=== PATIENT | male | born 1960 | race Caucasian/White ===

== ENCOUNTER → 2024-03-30 07:17 | Day surgery (SDC) | payer OTHER, SELFPAY ==
[2024-03-30 07:51] VITALS: BMI 28.6
--- NOTE | 2024-03-30 09:23 | ITS.CL.CARDI ---
Addendum entered and electronically signed by Chuckie Goodman DO 03/30/24 13:17:
.
The patient underwent cardioversion following successful BLANE.
Original Note:
Diesel Service Technician - Cardioversion
Cardioversion
Procedure Report:
Date of Procedure: March 30 2024
Procedure: Cardioversion
Indication: Symptomatic atrial fibrillation
Performing Physician: Chuckie Goodman DO [facility]
Technique: The patient was brought to the holding area. Signed informed consent was obtained. A time out was called and performed. The patient was anesthetized by the anesthesia service. Anticoagulation status was reviewed and appropriate. R2 pads
were placed anteriorly and posteriorly. A 200 J synchronized biphasic shock restored normal sinus rhythm without significant bradycardia. There were no complications.
Conclusion: Uncomplicated cardioversion from atrial fibrillation to sinus rhythm.
Recommendation: Routine post cardioversion care. Continue terminal system operator anticoagulation.
== END ==
LOC: CATH 07:17
PROVIDERS: ATTENDING PHYSICIAN Nuclear Medicine Nuclear Cardiology; FAMILY PHYSICIAN Family Medicine; OTHER PHYSICIAN Internal Medicine Cardiovascular Disease
DX: I48.19 Other persistent atrial fibrillation (principal); I08.1 Rheumatic disorders of both mitral and tricuspid valves; I48.92 Unspecified atrial flutter; R07.89 Other chest pain; I25.10 Atherosclerotic heart disease of native coronary artery without angina pectoris; I10 Essential (primary) hypertension; Z87.891 Personal history of nicotine dependence; Z79.01 Long term (current) use of anticoagulants
CPT/HCPCS: 93312; 93320; 93325; 92960; 93005

== ENCOUNTER 2024-03-31 13:34 | Emergency (ER) | payer OTHER, SELFPAY ==
[2024-03-31 13:39] VITALS: BP 132/82
[2024-03-31 14:00] LABS: % Basophils 0.5 % (0-2); % Immature Granulocytes 0.4 % (0-0.5); % Lymphocytes 22.3 % (20.5-51.1); % Neutrophils 60.8 % (42.2-75.2); Absolute Eosinophils 0.3 10^3/uL (0-0.7); Absolute Lymphocytes 1.9 10^3/uL (1.2-3.4); Absolute Monocytes 1.1 10^3/uL (0.1-0.6); Absolute Neutrophils 5.1 10^3/uL (1.4-6.5); Hematocrit 38.2 % (39.0-52.0); Hemoglobin 14.2 g/dL (13.0-18.0); Mean Corp Hgb Conc. 37.2 g/dL (33.0-37.0); Mean Corpuscular Hgb 34.3 pg (27.0-31.0); Mean Corpuscular Volume 92.3 fL (80.0-94.0); Mean Platelet Volume 10.7 fL (7.4-10.4); Nucleated Red Blood Cells % 0 % (-); Platelet Count 226 10^3/uL (130-400); Red Blood Cell Count 4.14 10^6/uL (4.70-6.10); White Blood Cell Count 8.4 10^3/uL (4.8-10.8)
[2024-03-31 14:23] LABS: ALT (SGPT) 50 U/L (0-50); AST (SGOT) 54 U/L (17-59); Albumin 4.2 g/dl (3.5-5.0); Alkaline Phosphatase 66 U/L (38-126); Blood Urea Nitrogen 11 mg/dl (9-20); Carbon Dioxide 28 mmol/L (22-30); Chloride 100 mmol/L (98-107); Glucose 113 mg/dl (70-99); Potassium 3.2 mmol/L (3.5-5.1); Sodium 135 mmol/L (135-145); Total Bilirubin 1.1 mg/dl (0.2-1.3); Total Protein 6.5 g/dl (6.3-8.2); eGFR > 60.00
[2024-03-31 14:33] LABS: Troponin I < 0.012 ng/ml
[2024-03-31 14:40] VITALS: BP 130/115
[2024-03-31] MEDS: KCL 40 MEQ PO (14:49)
--- NOTE | 2024-03-31 14:49 | ED.GENMED ---
History of Present Illness
General
Chief Complaint: Heart Rate Problem
Source: patient and records
Time Seen by Provider: 03/31/24 14:35
History of Present Illness
History of Present Illness:
63yoM with a history of atrial fibrillation and hypertension presenting with his for evaluation of palpitations. Patient underwent BLANE/cardioversion yesterday morning with Dr. Goodman. He converted to NSR and was discharged. Patient states he
felt himself go back into afib around dinner time last night. He has been monitoring his heart rate on his home monitor and heart rates have been controlled. He called the cardiology office today and was advised to go to the ED for evaluation.
Patient is minimally symptomatic currently. He has some mild dyspnea and chest pressure which he has been having for several months. No dizziness or syncope.
He was seen by his PCP about 1 month ago due to his chest discomfort and dyspnea. He was found to be in afib and was prescribed Xarelto and referred to cardiology. He was seen by cardiology in the outpatient setting 4 days ago and the
BLANE/cardioversion was scheduled for yesterday. He has a history of a prior cardioversion 10 years ago. He states he converted back into afib about 3 days after the cardioversion and ultimately underwent an ablation.
Past History
Past History
ED Past Medical History: Arrthythmia, GERD and Psychiatric
ED Past Surgical History: Cardiac (ablation)
Social History
Tobacco: Former smoker
Alcohol: Occasional
Drug: None
Personal:
Living: with family
Phy Exam
General Physical Exam
General Presentation: well appearing and no apparent distress
General age: appears stated age
General Skin: warm and dry
General Habitus: normal
General Mental: alert
General Hydration: appears well hydrated
Cardiovascular Exam
Cardiovascular Exam: irregularly irregular
Pulmonary Exam
Pulmonary Exam: lungs clear, no respiratory distress, no crackles and no wheezing
Musculoskeletal Exam
Musculoskeletal Exam: no edema
Skin Exam
Skin Exam: normal color and warm/dry
Course
Orders/Labs/Results
Orders:
Orders
03/31/24 13:42
EKG [Electrocardiogram (*1)] Urgent
Reason for Study: Tachycardia
EKG- Treatment ONCE
03/31/24 13:49
Complete Blood Count/With Diff Urgent
Comprehensive Metabolic Panel Urgent
Magnesium Urgent
Comment: MAG ADDED ON BY FLOOR 2:30PM 03-31-24
Troponin I Urgent
03/31/24 14:36
Add On- LAB Urgent
Tests Added?: magnesium
Potassium Chloride [KCl] 40 meq PO NOW STA
03/31/24 15:02
Magnesium Sulfate 2 Gram/50 ml [Magnesium Sulfate] 2 gram in 50 ml IV NOW
03/31/24 15:30
Flecainide [Tambocor] 50 mg PO NOW STA
Abnormal Lab Results
03/31/24
13:49
RBC 4.14 L 10^6/uL
(4.70-6.10)
Hct 38.2 L %
(39.0-52.0)
MCH 34.3 H pg
(27.0-31.0)
MCHC 37.2 H g/dL
(33.0-37.0)
MPV 10.7 H fL
(7.4-10.4)
Absolute Monos (auto) 1.1 H 10^3/uL
(0.1-0.6)
Monocytes % 13.0 H %
(1.7-9.3)
Potassium 3.2 L mmol/L
(3.5-5.1)
Creatinine 0.6 L mg/dL
(0.7-1.3)
Glucose 113 H mg/dl
(70-99)
Magnesium 1.2 L mg/dl
(1.6-2.3)
03/31/24 13:49
03/31/24 13:49
Vital Signs
Initial and Last Documented VS:
Initial Vital Signs
Temp Pulse Resp BP Pulse Ox
98.4 F 77 16 132/82 98
03/31/24 13:39 03/31/24 13:39 03/31/24 13:39 03/31/24 13:39 03/31/24 13:39
Last Documented Vital Signs
Temp Pulse Resp BP Pulse Ox
98.4 F 72 14 106/93 93
03/31/24 13:39 03/31/24 16:15 03/31/24 16:15 03/31/24 16:01 03/31/24 16:15
MDM/Problems Addressed
Differential Diagnosis Includes:
63yoM here with atrial fibrillation. Underwent BLANE/cardioversion yesterday and now back in afib. He is minimally symptomatic currently. HR 77 on arrival and BP stable. He is well appearing in no distress. Differential diagnosis includes but is not
limited to: atrial fibrillation, electrolyte abnormality, ACS
Initial ED plan: Check cardiac labs, magnesium, and EKG. Will discuss with cardiology.
*EKG
Interpreted by ED Provider?: Yes
EKG Intrepretation Date: 03/31/24
EKG Intrepretation Time: 15:01
Heart Rate: 73
Rate: normal
Rhythm: a-fib
Burt: normal axis
Interval: normal interval
QRS Pattern: normal QRS
Ischemia: non-specific ST changes
*Critical Care Note
Total Time (30-74mins, 75-104mins- exclusive of procedures): Not Applicable
Update Note
Update Note:
Labs reveal a potassium of 3.2 and magnesium of 1.2 which were replaced. EKG shows rate controlled afib without ischemic changes and troponin is normal. Case was discussed with Dr. Donovan, accordion tuner gun tester. Patient seen by cardiology AP. Plan
is to initiate patient on flecainide 50mg BID and close outpatient f/u next week for repeat EKG. No need for admission per cardiology. Recommendations were discussed with patient and script was sent to pharmacy by the cardiology team. ED return
precautions discussed. He was discharged in stable condition.
ED Attending Note
-
Portions of this chart may have been created with voice recognition software.� Occasional wrong word or��sound alike� substitutions may have occurred due to the inherent limitations of voice recognition software.
Discharge Plan
Departure
Patient Disposition: Home (Routine Discharge)
Date of Disposition: 03/31/24
Time of Disposition: 16:02
Patient with high blood pressure during this ER visit?: No
Discharge Problem:
Atrial fibrillation
Instructions: Atrial Fibrillation (DC), Flecainide
Prescriptions:
New
flecainide 50 mg tablet
50 mg PO Q12H Qty: 60 3RF
No Action
amlodipine 5 MG tablet
5 mg PO DAILY
propranolol 80 MG capsule,extended release 24 hr
160 mg PO DAILY
omeprazole 40 MG capsule,delayed release(DR/EC)
40 mg PO DAILY
hydrochlorothiazide 25 MG tablet
25 mg PO DAILY
bupropion HCl 150 MG tablet extended release 24 hr
150 mg PO QPM
Patient Comments:
with 300mg = 450mg
escitalopram oxalate 10 mg Tablet
10 mg PO QPM
Xarelto 20 mg Tablet
20 mg PO QPM
Referrals:
Ronni Barakat DO [Family Provider] -
Activity Restrictions/Additional Instructions:
Take flecainide as prescribed by the gun tester.
Please follow-up with your gun tester on Wednesday. Return to the ER with any worsening symptoms, chest pain, or passing out.
Interventions
Interventions:
*Risk Screen - Suicide Last Done: 03/31/24 13:39
*General Assessment Last Done: 03/31/24 13:39
*Neglect/Abuse Screening Last Done: 03/31/24 13:39
ED- Fall Risk Assessment Last Done: 03/31/24 16:34
*ED COVID-19 Vaccine History Last Done: 03/31/24 16:34
*Nursing Disposition Last Done: 03/31/24 16:34
ED- Cardiac Assessment Last Done: 03/31/24 14:43
ED- Pulmonary Assessment Last Done: 03/31/24 14:44
Discharge Date and Time
Discharge Date/Time: 03/31/24 16:35
Print Language: FRENCH
[2024-03-31 15:00] VITALS: BP 122/84
[2024-03-31 15:00] LABS: Magnesium 1.2 mg/dl (1.6-2.3)
[2024-03-31] MEDS: MAGNESIUM SULFATE 50 IV (15:09)
[2024-03-31] MEDS: TAMBOCOR 50 MG PO (15:52)
[2024-03-31 16:01] VITALS: BP 106/93
== END 2024-03-31 16:35 | disposition home or self-care (01) ==
LOC: EMR 13:34
PROVIDERS: Emergency Medicine; EMERGENCY PHYSICIAN Emergency Medicine; FAMILY PHYSICIAN Family Medicine
DX: I48.91 Unspecified atrial fibrillation (principal); I10 Essential (primary) hypertension; Z87.891 Personal history of nicotine dependence
CPT/HCPCS: 99284; 96360; 96361; 80053; 83735; 84484; 85025; 93005

== ENCOUNTER → 2024-04-10 12:17 | Outpatient (REF) | payer OTHER, SELFPAY | LOC: DHCBC/DCA 12:17 | PROVIDERS: ATTENDING PHYSICIAN Internal Medicine Cardiovascular Disease; FAMILY PHYSICIAN Family Medicine | DX: R07.89 Other chest pain (principal) | CPT/HCPCS: 78452; 93017; A9500; J2785 ==

== ENCOUNTER 2024-05-05 06:36 | Day surgery (SDC) | payer OTHER, SELFPAY ==
[2024-04-28 10:09] VITALS: BMI 30.1
[2024-04-28 10:37] LABS: % Basophils 0.6 % (0-2); % Eosinophils 2.6 % (0-6); % Immature Granulocytes 0.4 % (0-0.5); % Monocytes 10.1 % (1.7-9.3); % Neutrophils 65.3 % (42.2-75.2); Absolute Eosinophils 0.1 10^3/uL (0-0.7); Absolute Lymphocytes 1.1 10^3/uL (1.2-3.4); Absolute Monocytes 0.6 10^3/uL (0.1-0.6); Absolute Neutrophils 3.6 10^3/uL (1.4-6.5); Hematocrit 40.3 % (39.0-52.0); Hemoglobin 14.8 g/dL (13.0-18.0); Mean Corp Hgb Conc. 36.7 g/dL (33.0-37.0); Mean Corpuscular Hgb 34.3 pg (27.0-31.0); Mean Corpuscular Volume 93.3 fL (80.0-94.0); Mean Platelet Volume 10.6 fL (7.4-10.4); Nucleated Red Blood Cells % 0 % (-); Platelet Count 202 10^3/uL (130-400); Red Blood Cell Count 4.32 10^6/uL (4.70-6.10); Red Cell Dist. Width 12.5 % (11.5-14.5); White Blood Cell Count 5.4 10^3/uL (4.8-10.8)
[2024-04-28 10:48] LABS: INR 1.43; PT 17.3 Sec (11.4-14.6)
[2024-04-28 11:28] LABS: ALT (SGPT) 56 U/L (0-50); AST (SGOT) 39 U/L (17-59); Albumin 4.3 g/dl (3.5-5.0); Alkaline Phosphatase 57 U/L (38-126); Blood Urea Nitrogen 12 mg/dl (9-20); Calcium 9.6 mg/dl (8.4-10.2); Carbon Dioxide 27 mmol/L (22-30); Chloride 101 mmol/L (98-107); Estimated Creatinine Clearance 118 ml/min; Glucose 90 mg/dl (70-99); Potassium 4.2 mmol/L (3.5-5.1); Sodium 136 mmol/L (135-145); Total Bilirubin 0.8 mg/dl (0.2-1.3); Total Protein 6.7 g/dl (6.3-8.2); eGFR > 60.00
[2024-05-05] VITALS (65 sets, daily range): BP systolic 118–152; BP diastolic 71–92
--- NOTE | 2024-05-05 09:05 | ITS.CL.CATH ---
Physical Therapy Director - Catheterization
Cardiac Catheterization
Procedure Report:
LEFT HEART CATHETERIZATION
Date of Procedure: May 05, 2024
Referring: Dr. Edison Pitts
PROCEDURES:
1. Left heart catheterization with coronary and single-plane left ventriculography
INDICATION: Chest pain with recent stress study notable for reversible defect in the basal anteroseptal, basal to mid inferior and basal to mid inferoseptal. LVEF is normal.
ACCESS: Attempted access in the right radial artery was unsuccessful. The radial artery was easily accessible with a beveled needle, however, the soft wire could only be advanced approximately 1 to 2 inches into the artery and no further. I
attempted to access the radial higher in the wrist and again excellent pulsatile flow with inability to pass soft tip guide wire distally. Arterial access was then switched to the right common femoral artery. Ultrsound guidance was utilized with
placement of a 5 Fr. arterial sheath
HEMODYNAMICS : (mmHg)
AO (s/d) : 139/78
LV (s/d) : 133/4
LVEDP : 21
CORONARY FINDINGS
DOMINANCE: Left
LEFT MAIN: Normal
LEFT ANTERIOR DESCENDING: The LAD arises normally from the left main and runs in the anterior interventricular groove with only minor irregularities. The LAD wraps completely around the apex supplying a portion of the inferior wall
RAMUS: 50% ostial stenosis. Small-medium caliber vessel supplying a small vascular territory
CIRCUMFLEX: The circumflex is a large-caliber dominant vessel giving rise to a moderate caliber OM1 and terminating in a moderate-sized posterolateral branch and PDA. Only minor irregularities are present
RIGHT CORONARY ARTERY: Small nondominant
VENTRICULOGRAPHY: Digital single-plane left ventricular ejection fraction is estimated at 60%. No regional wall motion abnormality
RADIATION SUMMARY: Fluoro Time (min): 2.5, Dose (mGy): 245, DAP (Gy.cm2) : 19.8
Closure Device: TR band
CONCLUSIONS
1. Nonobstructive coronary disease and stable coronary anatomy
2. Preserved systolic function
RECOMMENDATIONS
1. Continued medical therapy and risk modification
Copy to: Dr. Edison Pitts
[2024-05-05] MEDS: NSS 1000 IV (12:05)
== END 2024-05-05 12:13 | disposition home or self-care (01) ==
LOC: CATH 06:36
PROVIDERS: ATTENDING PHYSICIAN Internal Medicine Interventional Cardiology; FAMILY PHYSICIAN Family Medicine; OTHER PHYSICIAN Internal Medicine Cardiovascular Disease
DX: I25.10 Atherosclerotic heart disease of native coronary artery without angina pectoris (principal); I48.91 Unspecified atrial fibrillation; I10 Essential (primary) hypertension; Z87.891 Personal history of nicotine dependence; Z79.01 Long term (current) use of anticoagulants
CPT/HCPCS: 36415; 80053; 85025; 85610; 93005; 93458; C1894; Q9967

== ENCOUNTER → 2024-05-11 06:24 | Outpatient (REF) | payer OTHER, SELFPAY | LOC: HWRAD 06:24 | PROVIDERS: ATTENDING PHYSICIAN Family Medicine | DX: R06.02 Shortness of breath (principal) | CPT/HCPCS: 71046 ==

== ENCOUNTER 2024-07-12 07:54 | Day surgery (SDC) | payer OTHER, SELFPAY ==
[2024-06-26 08:51] VITALS: BMI 30.5
[2024-06-26 09:27] LABS: % Basophils 0.7 % (0-2); % Eosinophils 2.4 % (0-6); % Immature Granulocytes 0.7 % (0-0.5); % Lymphocytes 17.6 % (20.5-51.1); % Monocytes 10.6 % (1.7-9.3); Absolute Eosinophils 0.2 10^3/uL (0-0.7); Absolute Lymphocytes 1.1 10^3/uL (1.2-3.4); Absolute Monocytes 0.7 10^3/uL (0.1-0.6); Absolute Neutrophils 4.2 10^3/uL (1.4-6.5); Hemoglobin 14.8 g/dL (13.0-18.0); Mean Corp Hgb Conc. 36.1 g/dL (33.0-37.0); Mean Corpuscular Hgb 34.7 pg (27.0-31.0); Mean Platelet Volume 10.4 fL (7.4-10.4); Nucleated Red Blood Cells % 0 % (-); Platelet Count 192 10^3/uL (130-400); Red Blood Cell Count 4.27 10^6/uL (4.70-6.10); Red Cell Dist. Width 13.1 % (11.5-14.5); White Blood Cell Count 6.1 10^3/uL (4.8-10.8)
[2024-06-26 09:34] LABS: INR 1.32; PT 16.2 Sec (11.4-14.6)
[2024-06-26 09:37] LABS: ALT (SGPT) 54 U/L (0-50); AST (SGOT) 36 U/L (17-59); Albumin 4.5 g/dl (3.5-5.0); Alkaline Phosphatase 48 U/L (38-126); Blood Urea Nitrogen 15 mg/dl (9-20); Calcium 9.6 mg/dl (8.4-10.2); Carbon Dioxide 29 mmol/L (22-30); Chloride 101 mmol/L (98-107); Estimated Creatinine Clearance > 125 ml/min; Glucose 95 mg/dl (70-99); Magnesium 1.6 mg/dl (1.6-2.3); Potassium 4.3 mmol/L (3.5-5.1); Sodium 139 mmol/L (135-145); eGFR > 60.00
[2024-07-12] VITALS (10 sets, daily range): BP systolic 122–154; BP diastolic 76–94; BMI 29.3
--- NOTE | 2024-07-12 10:08 | ITS.CL.ABL ---
Licensed Physical Therapist Assistant - Ablation
Ablation
Procedure Report:
Procedure Date: 07/12/2024
Patient History:
Patient is a pleasant 63-year-old male with a past medical history significant for history of tobacco use, history of alcohol use, nonobstructive coronary artery disease, paroxysmal atrial flutter status post CTI RFA 2013, and symptomatic paroxysmal
atrial fibrillation.
See H&P for complete details.
Indication:
Symptomatic paroxysmal atrial fibrillation
Arrhythmia Specific History:
Prior Medical Therapies for Rate and Rhythm Control:
X Beta-polina
[ ] Calcium channel-polina
[ ] Amiodarone
[ ] Dronederone
[ ] Sotalol
[ ] Flecainide
[ ] Dofetilide
[ ] Options limited by bradycardia
[ ] Options limited by comorbid renal disease
Prior Procedural Therapies for AF/AFL:
X Cardioversion
[ ] Pulmonary Vein Isolation
[ ] Posterior Wall Isolation
X Additional lines (Specify) - CTI RFA 2013 (Dylon Qureshi )
[ ] Surgical Caldwell-MAZE or PVI (Specify)
Procedure Performed:
X AF ablation procedure (44515) -- includes LA/CS pacing, trans-septal, 3D mapping, + ICE
[ ] +IV drug (16602)
[ ] +Other Arrhythmia (55642)
[ ] +Other AF Line/ablation (89002)
Risks and expected recovery has been explained in detail. Alternative options have been explored, and in a shared-decision making fashion we have decided that this was the most appropriate procedure.
Method
NPO status confirmed. Grounding pad applied. Defibrillator pads applied. Continuous surface ECG, pulse oximetry, and blood pressure were monitored. Procedure was performed under general anesthesia, with anesthesia services.
Both groins were clipped, prepped with Chloraprep, and draped in sterile fashion. Time out was called. Local anesthesia administered with bupivacaine. The right and left femoral veins were accessed for catheter placement, using ultrasound guidance,
micro-puncture needle/wire, and modified seldinger technique. 3 sheaths were placed. The following catheters were used:
[ ] Tacticath SE (D/F Curve) ablation catheter
X Viewflex 9Fr ICE catheter
X Inquiry decapolar 6Fr diagnostic catheter
[ ] CRD Hex 6Fr
[ ] Arctic Front Advance Cryoballoon ([ ]28mm[ ]23mm)
[ ] Achieve Advance mapping catheter ([ ]15mm[ ]20mm)
X FlexCath Contour 10 Fr with PulseSelect PFA Catheter
X Advisor HD Grid Mapping Catheter, SE
[ ] Acuson AcuNav 8 Fr ICE catheter
[ ]Other: [ ]
Intracardiac ultrasound (ICE) was carefully advanced into the right atrium to guide sheath placement over a J-wire, catheter placement, guide trans-septal puncture, identify potential complications, identify anatomic structures and ensure proper
contact between ablation catheter and tissue.
Heparin was given prior to trans-septal puncture. Heparin was given to achieve and maintain a target ACT of 300-400 seconds throughout the procedure.
Trans-septal access was performed under ICE guidance. The trans-septal puncture was performed with a SafeSept wire through a Brockenbrough needle assembly through the steerable sheath. The wire was visualized as it entered the LSPV and system
advanced under ICE guidance and fluoroscopy into the LA. The Brockenbrough needle assembly, SafeSept wire and sheath dilator were removed under negative pressure. LA pressure was measured and recorded.
ICE and 3D mapping was performed to identify relevant cardiac structures. A careful 3D map was created to assess for regions of low-voltage and abnormal electrogram signals using HD grid mapping catheter and PulseSelect catheter. Additional mapping
was performed as outlined below.
Prior to ablation, glycopyrrolate was provided. PulseSelect catheter was advanced over J-wire to the ostium of each vein. Pulmonary vein isolation was performed with ostial and antral lesions in a circumferential manner. Contact was visualized via
EAM, ICE, fluoroscopy, and EGM signals. Following completion of ablation lesions, a post-ablation voltage/activation map was performed in sinus rhythm. Entrance and exit block were confirmed for each vein. Following completion of pulmonary
isolation, HD grid was retracted into the steerable sheath under negative pressure. Steerable sheath was removed from the left atrium into the right atrium. HD grid catheter was advanced under fluoroscopy and intracardiac ultrasound guidance. HD
grid was then used for electroanatomic mapping under CS proximal pacing, evidence of persistent line of block at the CTI was noted. Transisthmus time was noted to be greater than 150 ms. Following electrophysiology study, no inducible arrhythmias
were noted.
Catheter and sheath were removed from the left atrium and post-ablation intracardiac echo evaluation was consistent with pre-ablation with no changes and no pericardial effusion and there is no left atrial thrombus or left ventricle thrombus seen.
Electrophysiology study was performed. Hemostasis was obtained with Vascade for each sheath and with manual pressure. Protamine was used for reversal.
Estimated Blood Loss
5 mL
Complications
None
Fluoroscopy: 3.7 minutes; 12.02 mGy; DAP 1.65
Baseline Intervals:
Rhythm: SR
GA: 159 ms
QRS: 106 ms
QT: 398 ms
QTc: 476 ms
A-A: 700 ms
R-R: 700 ms
Post-Procedure Intervals:
GA: 148 ms
QRS: 101 ms
QT: 425 ms
QTc: 417 ms
A-A: 1040 ms
R-R: 1040 ms
AVWB: 380 ms
AVERP: 600/310 ms
AERP: 600/210 ms
Recommendations
- Bedrest with straight-leg precautions as ordered
- Anticipate same day discharge if patient meeting clinical metrics
- Resume home medications as indicated
- Ok to resume anticoagulation tonight if patient and groin sites stable
- PPI daily for 30 days
- Plan for follow-up in office as scheduled
Edison Pitts, DO
Clinical Cardiac Steam Hoist Operator
cc: Ronni Barakat DO
[2024-07-12 11:44] LABS: ACT-LR - POC 261 Seconds (116-155)
[2024-07-12 11:58] LABS: ACT-LR - POC 282 Seconds (116-155)
[2024-07-12 12:16] LABS: ACT-LR - POC 361 Seconds (116-155)
[2024-07-12 12:31] LABS: ACT-LR - POC 326 Seconds (116-155)
[2024-07-12 12:53] LABS: ACT-LR - POC 384 Seconds (116-155)
[2024-07-12 13:01] LABS: ACT-LR - POC 157 Seconds (116-155)
[2024-07-12] MEDS: ANESTHETIC LOZENGE 1 LOZENGE PO (14:00)
--- NOTE | 2024-07-12 16:17 | W.PN.UPDATE ---
Update Note
Progress Note Update
Pt seen post PFA. Right groin with vascade closure, no ht/bleeding, oob ambulating, urinating without difficulty. Post EKG NSR 60s, no acute changes. Resume xarelto tonight, continue propranolol for now. Followup at [facility] as scheduled. Home today if
groin site/tele remain stable.
== END 2024-07-12 16:05 | disposition home or self-care (01) ==
LOC: CATH 07:54
PROVIDERS: ATTENDING PHYSICIAN Internal Medicine Cardiovascular Disease; FAMILY PHYSICIAN Family Medicine
DX: I48.19 Other persistent atrial fibrillation (principal); I48.92 Unspecified atrial flutter; I25.10 Atherosclerotic heart disease of native coronary artery without angina pectoris; I10 Essential (primary) hypertension; Z87.891 Personal history of nicotine dependence; R91.1 Solitary pulmonary nodule; G47.33 Obstructive sleep apnea (adult) (pediatric); F32.A Depression, unspecified; F41.9 Anxiety disorder, unspecified; K58.9 Irritable bowel syndrome, unspecified; Z79.899 Other long term (current) drug therapy; Z79.01 Long term (current) use of anticoagulants; Z88.0 Allergy status to penicillin
CPT/HCPCS: C1894; C1769; C1733; 36415; 75572; 80053; 83735; 85025; 85347; 85610; 86850; 86900; 86901; 93005; 93656; C1732; C1760; C1766; Q9967

== ENCOUNTER → 2025-01-04 10:28 | Outpatient (REF) | payer OTHER, SELFPAY | LOC: HWRAD 10:28 | PROVIDERS: ATTENDING PHYSICIAN Family Medicine | DX: J39.8 Other specified diseases of upper respiratory tract (principal) | CPT/HCPCS: 71250 ==

== ENCOUNTER → 2025-02-06 07:18 | Outpatient (REF) | payer OTHER, SELFPAY | LOC: HWRCS 07:18 | PROVIDERS: ATTENDING PHYSICIAN Internal Medicine Cardiovascular Disease; FAMILY PHYSICIAN Family Medicine | DX: R06.02 Shortness of breath (principal) | CPT/HCPCS: 93306 ==